=== PATIENT | male | born 1995 | race American Indian/Alaskan Native ===

== ENCOUNTER 2018-08-05 07:50 | Emergency (ER) | payer OTHER ==
[2018-08-05 08:35] VITALS: BP 130/82
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
== END 2018-08-05 09:26 | disposition home or self-care (01) ==
LOC: ED 07:50
DX: Z77.21 Contact with and (suspected) exposure to potentially hazardous body fluids (principal)
CPT/HCPCS: 99282